=== PATIENT | male | born 1970 | race Caucasian/White ===

== ENCOUNTER 2020-03-18 16:13 | Inpatient (IN) | payer SELFPAY ==
[2020-03-18 16:55] LABS: Basophils % 0.3 % (0-1.3); Hematocrit 41.3 % (39.6-49.0); Lymphocytes % 20.2 % (15.3-44.8); RBC Red Blood Cell Count 4.79 M/uL (4.33-5.43)
[2020-03-18] MEDS ORDERED: ACETAMINOPHEN 500 MG TAB PO PRN (16:55)
[2020-03-18] MEDS ORDERED: MORPHINE 4 MG/ML SYR IV PRN (16:55)
[2020-03-18] MEDS ORDERED: ALPRAZOLAM 0.25 MG TABLET PO PRN (16:55)
[2020-03-18 16:59] LABS: Protime INR 1.03
[2020-03-18 17:15] LABS: ALT/SGPT 109 U/L (12-78); AST/SGOT 81 U/L (15-37); Alkaline Phosphatase 78 U/L (45-117); BUN Blood Urea Nitrogen 9 mg/dL (7-18); Bicarbonate 30 mmol/L (21-32); Bilirubin Direct 0.1 mg/dL (0-0.2); Bilirubin Total 0.5 mg/dL (0.2-1.0); Glucose Level 118 mg/dL (74-106); Magnesium 2.2 mg/dL (1.8-2.4); NT PRO-BNP 27 pg/mL (<125); Potassium 3.5 mmol/L (3.5-5.1); Protein, Total 7.9 g/dL (6.4-8.2); Sodium Level 144 mmol/L (136-145); Troponin (Emerg Dept Use Only) < 0.02 ng/mL (0.0-0.045)
--- NOTE | 2020-03-18 17:36 | RAD REPORT ---
EXAM DESCRIPTION: CT - Head Brain Wo Cont - 03/18/2020 4:55 pm CLINICAL HISTORY: Syncope COMPARISON: None. TECHNIQUE: Computed axial tomography of the head was obtained. IV contrast was not requested. All CT scans are performed using dose optimization technique as appropriate and may include automated exposure control or mA/KV adjustment according to patient size. FINDINGS: An intracranial bleed is not seen . The ventricles are normal in caliber. No extra-axial fluid collection is noted. Bilateral enlargement of the temporalis muscles. Fluid within the sinuses/ mastoids is not seen. IMPRESSION: No acute intracranial abnormality is seen. If patient's symptoms persist MRI of the bra in would be recommended.
--- NOTE | 2020-03-18 17:46 | RAD REPORT ---
EXAM DESCRIPTION: Dora Single View03/18/2020 5:12 pm CLINICAL HISTORY: Chest pain COMPARISON: none FINDINGS: The lungs appear clear of acute infiltrate. The heart is borderline enlarged IMPRESSION: No acute abnormalities displayed
[2020-03-18] MEDS ORDERED: ASPIRIN 81 MG CHEWABLE TABLET ONE (18:00)
[2020-03-18] MEDS ORDERED: ACETAMINOPHEN 500 MG TAB ONE (18:00)
[2020-03-18] MEDS ORDERED: METOPROLOL TAR 50 MG TAB ONE (18:00)
[2020-03-18] MEDS ORDERED: NA CHLORIDE 0.9% 1,000 ML ONE (18:01)
[2020-03-18] MEDS ORDERED: METOPROLOL TARTRATE 5 MG/5 ML INJ IV ONE (18:01)
--- NOTE | 2020-03-18 18:36 | ER ---
Nurse's Notes [facility] – [place], [place] [facility] Name: Remy Briggs Age: 49 yrs Sex: Male : 1970 Arrival Date: 03/18/2020 Time: 16:16 Bed 6 Private MD: Diagnosis: Hypertensive heart disease;Syncope and collapse;Chest pain, unspecified Presentation: 03/18 16:16 Chief complaint: EMS states: [place] when [place] out and went ca1 unresponsive. Upon waking up he c/o SOB and headache. O2 sat at 89%, BP 228/142, BGL 114, temp 98.1F. Given Nitro SL x 1, Solu medrol 125mg IV, A\T\A x 1. Coronavirus screen: Client denies travel out of the [place] in the last 14 days. cough unrelated to allergies, shortness of breath, Client presents with at least one sign or symptom that may indicate coronavirus-19. Standard/surgical mask placed on the client. Provider contacted for isolation considerations. Ebola Screen: Patient negative for fever greater than or equal to 101.5 degrees Fahrenheit, and additional compatible Ebola Virus Disease symptoms Patient denies exposure to infectious person. Patient denies travel to an Ebola-affected area in the 21 days before illness onset. No symptoms or risks identified at this time. Initial Sepsis Screen: Does the patient meet any 2 criteria? No. Patient's initial sepsis screen is negative. Does the patient have a suspected source of infection? No. Patient's initial sepsis screen is negative. Risk Assessment: Do you want to hurt yourself or someone else? Patient reports no desire to harm self or others. Onset of symptoms was March 18, 2020. 16:16 Acuity: LATASHA 2 ca1 16:16 Method Of Arrival: EMS: [facility] ca1 Triage Assessment: 16:20 General: Appears in no apparent distress. uncomfortable, Behavior is cooperative, ca1 anxious. Pain: Denies pain. EENT: No signs and/or symptoms were reported regarding the EENT system. Neuro: Level of Consciousness is awake, alert, obeys commands, Oriented to person, place, time, situation, Radiological Metallurgist are equal bilaterally Moves all extremities. Speech is normal, Facial symmetry appears normal, Pupils are PERRLA, Intact Reports headache a syncopal episode. Cardiovascular: Heart tones S1 S2 present Capillary refill < 3 seconds Patient's skin is warm and dry. Rhythm is sinus tachycardia. Respiratory: Reports shortness of breath Airway is patent Respiratory effort is even, unlabored, Respiratory pattern is regular, symmetrical, Breath sounds are clear bilaterally. GI: Abdomen is round non-distended, Bowel sounds present X 4 quads. Abd is soft and non tender X 4 quads. : No signs and/or symptoms were reported regarding the genitourinary system. Derm: Skin is intact, is healthy with good turgor, Skin is pink, warm \T\ dry. Musculoskeletal: Circulation, motion, and sensation intact. Capillary refill < 3 seconds. Historical: - Allergies: 16:20 No Known Allergies; ca1 - Home Meds: 16:20 lisinopril Oral [Active]; ca1 - PMHx: 16:20 Hypertension; ca1 - PSHx: 16:20 None; ca1 - Immunization history:: Flu vaccine is not up to date. - Social history:: Smoking status: Patient denies any tobacco usage or history of. Screenin:24 Abuse screen: Denies threats or abuse. Denies injuries from another. Nutritional ca1 screening: No deficits noted. Tuberculosis screening: No symptoms or risk factors identified. Fall Risk IV access (20 points). Assessment: 16:22 Reassessment: see triage notes. ca1 17:30 Reassessment: Patient appears in no apparent distress at this time. Patient and/or ca1 family updated on plan of care and expected duration. Pain level reassessed. Patient is alert, oriented x 3, equal unlabored respirations, skin warm/dry/pink. 18:32 Reassessment: Patient appears in no apparent distress at this time. Patient and/or ca1 family updated on plan of care and expected duration. Pain level reassessed. Patient is alert, oriented x 3, equal unlabored respirations, skin warm/dry/pink. Vital Signs: 16:16 BP 189 / 122; Pulse 106; Resp 20; Temp 97.4(TE); Pulse Ox 97% on R/A; Weight 99.79 kg ca1 (R); Height 5 ft. 8 in. (172.72 cm) (R); Pain 0/10; 17:35 BP 186 / 139 LA; Pulse 84; Resp 22; Pulse Ox 95% on R/A; ca1 17:40 BP 204 / 150 RA; Pulse 72; Resp 22 S; Pulse Ox 94% on R/A; ca1 18:40 BP 181 / 111; Pulse 69; Resp 16; Pulse Ox 92% on R/A; ca1 16:16 Body Mass Index 33.45 (99.79 kg, 172.72 cm) ca1 ED Course: 16:16 Patient arrived in ED. iw 16:16 Ellen Perla, RN is Primary Nurse. ca1 16:16 Attila Cifuentes PA is PHCP. cp 16:16 Archana Rodriguez MD is Attending Physician. cp 16:19 Triage completed. ca1 16:20 Arm band placed on right wrist. ca1 16:24 Patient has correct armband on for positive identification. Bed in low position. Call ca1 light in reach. Side rails up X2. radiation monitor on. Pulse ox on. NIBP on. Warm blanket given. 16:24 No provider procedures requiring assistance completed. Maintain EMS IV. Dressing ca1 intact. Good blood return noted. Site clean \T\ dry. Gauge \T\ site: 20 G RAC. 16:37 Ptt, Activated Sent. mh5 16:37 Basic Metabolic Panel Sent. mh5 16:37 CBC with Automated Diff Sent. mh5 16:38 EKG done, by ED staff, reviewed by Archana Rodriguez MD. mh5 16:55 CT Head Brain wo Cont In Process Unspecified. EDMS 18:35 Archana Cervantes MD is Hospitalizing Provider. cp 19:01 Inserted saline lock: 20 gauge in right forearm, using aseptic technique. jb5 19:47 Inserted saline lock: 20 gauge in right forearm, using aseptic technique. jb5 Administered Medications: 17:40 Drug: NS 0.9% 1000 ml Route: IV; Rate: 1 bolus; Site: right antecubital; ca1 17:42 Drug: Tylenol 1000 mg Route: PO; ca1 17:50 Drug: Aspirin Chewable Tablet 324 mg Route: PO; ca1 17:52 Drug: Lopressor 50 mg Route: PO; ca1 17:55 Drug: Lopressor 5 mg Route: IVP; Site: right antecubital; ca1 18:44 Not Given (Hemodynamic Parameters): Nitroglycerin 0.4 mg Sublingual once; every five ca1 minute if needed x3 19:30 Drug: Lisinopril 20 mg Route: PO; ca1 19:43 Drug: hydrALAZINE 10 mg Route: IV; Rate: calculated rate; Site: right forearm; ca1 20:07 CANCELLED (Physician Discretion): hydrALAZINE 10 mg IV at calculated rate once cp Outcome: 18:36 Decision to Hospitalize by Provider. cp 03/19 14:53 Patient left the ED. jd3 Signatures: Dispatcher [employer] EDChasity Lau RN RN Attila Yuen PA PA cp Martinez, Maria mh5 Broussard, Jennifer jb5 Davies, Jonathon, RN RN jd3 Ellen Perla RN RN ca1 Corrections: (The following items were deleted from the chart) 03/18 19:00 18:32 Reassessment: Patient appears in no apparent distress at this time. ca1 ca1 19:48 19:01 Inserted saline lock: 20 gauge in right forearm, using aseptic technique. jb5 jb5 19:48 19:47 Inserted saline lock: 20 gauge in right forearm, using aseptic technique. jb5 jb5
--- NOTE | 2020-03-18 18:36 | EDPHYS ---
Physician Documentation [facility] Name: Remy Briggs Age: 49 yrs Sex: Male : 1970 Arrival Date: 03/18/2020 Time: 16:16 Bed 6 Private MD: ED Physician Archana Rodriguez HPI: 03/18 17:00 This 49 yrs old Male presents to ER via EMS with complaints of Syncope and cp Chest Pain. 17:00 The patient has experienced syncope, lost consciousness. cp 17:00 Onset: The symptoms/episode began/occurred just prior to arrival. cp 17:00 Duration: This was a single episode, that lasted an unknown period of time. cp 17:00 Context: occurred at work, occurred while the patient was driving. Just prior to the cp episode the patient experienced no apparent symptoms. 17:00 Associated injury: The patient did not suffer any apparent associated injury. cp Associated signs and symptoms: Pertinent positives: chest pain, headache, Pertinent negatives: abdominal pain, vomiting, weakness. Current symptoms: headache. Historical: - Allergies: 16:20 No Known Allergies; ca1 - Home Meds: 16:20 lisinopril Oral [Active]; ca1 - PMHx: 16:20 Hypertension; ca1 - PSHx: 16:20 None; ca1 - Immunization history:: Flu vaccine is not up to date. - Social history:: Smoking status: Patient denies any tobacco usage or history of. ROS: 17:00 Cardiovascular: Positive for chest pain. cp 17:00 Eyes: Negative for injury, pain, redness, and discharge. cp 17:00 Constitutional: Negative for body aches, chills, fever, poor PO intake. 17:00 Respiratory: Positive for shortness of breath, at rest. Negative for cough, wheezing. 17:00 Abdomen/GI: Negative for abdominal pain, nausea, vomiting, and diarrhea, constipation, black/tarry stool, rectal bleeding. 17:00 Back: Negative for radiated pain. 17:00 Neuro: Positive for headache, syncope, Negative for altered mental status, weakness. 17:00 All other systems are negative. Exam: 17:00 ECG was reviewed by the Attending Physician. cp 17:05 Constitutional: The patient appears in no acute distress, alert, awake, cp non-diaphoretic, non-toxic, well developed, well nourished, obese. 17:05 Head/Face: Normocephalic, atraumatic. cp 17:05 Eyes: Periorbital structures: appear normal, Conjunctiva: normal, no exudate, no injection, Sclera: no appreciated abnormality, Lids and lashes: appear normal, bilaterally. 17:05 ENT: External ear(s): are unremarkable, Nose: is normal, Mouth: Lips: moist, Oral mucosa: moist, Posterior pharynx: Airway: no evidence of obstruction, patent. 17:05 Neck: ROM/movement: is normal, is supple, without pain, no range of motions limitations. 17:05 Chest/axilla: Inspection: normal, Palpation: is normal, no crepitus, no tenderness. 17:05 Cardiovascular: Rate: tachycardic, Rhythm: regular, Edema: mild bilateral lower legs, JVD: is not appreciated. 17:05 Respiratory: the patient does not display signs of respiratory distress, Respirations: labored breathing, that is mild, intercostal retractions, are absent, Breath sounds: are clear throughout, no decreased breath sounds, no stridor, no wheezing. 17:05 Abdomen/GI: Inspection: abdomen appears normal, Palpation: abdomen is soft and non-tender, in all quadrants. 17:05 Back: pain, is absent, ROM is normal. 17:05 Neuro: Orientation: to person, place \T\ time. Mentation: able to follow commands, slow to respond, Motor: moves all fours, general weakness without focal deficits, Sensation: no obvious gross deficits. Vital Signs: 16:16 BP 189 / 122; Pulse 106; Resp 20; Temp 97.4(TE); Pulse Ox 97% on R/A; Weight 99.79 kg ca1 (R); Height 5 ft. 8 in. (172.72 cm) (R); Pain 0/10; 17:35 BP 186 / 139 LA; Pulse 84; Resp 22; Pulse Ox 95% on R/A; ca1 17:40 BP 204 / 150 RA; Pulse 72; Resp 22 S; Pulse Ox 94% on R/A; ca1 18:40 BP 181 / 111; Pulse 69; Resp 16; Pulse Ox 92% on R/A; ca1 16:16 Body Mass Index 33.45 (99.79 kg, 172.72 cm) ca1 MDM: 16:20 Patient medically screened. 17:15 Differential Diagnosis: cardiac arrhythmia, cerebrovascular accident, drug effect, GI cp bleed, idiopathic syncope, seizure, vasovagal episode. 18:35 Counseling: I had a detailed discussion with the patient and/or guardian regarding: the cp historical points, exam findings, and any diagnostic results supporting the discharge/admit diagnosis, lab results, radiology results, the need for further work-up and treatment in the hospital. Response to treatment: the patient's symptoms have mildly improved after treatment. Physician consultation: Archana Cervantes MD. 18:35 Data reviewed: vital signs, nurses notes, lab test result(s), EKG, radiologic studies, cp CT scan, plain films, and as a result, I will admit patient. 03/18 16:20 Order name: Basic Metabolic Panel 03/18 16:20 Order name: CBC with Diff 03/18 16:20 Order name: LFT's; Complete Time: 17:22 03/18 17:22 Interpretation: Normal except: AST 81; ALT 109; GLOB 3.9; A/G 1.0. 03/18 16:20 Order name: Magnesium; Complete Time: 17:22 03/18 16:20 Order name: NT PRO-BNP; Complete Time: 17:22 03/18 16:20 Order name: PT-INR; Complete Time: 17:22 03/18 16:20 Order name: Troponin (emerg Dept Use Only); Complete Time: 17:22 03/18 17:24 Interpretation: Within normal limits: TROPED < 0.02; Reviewed. 03/18 16:20 Order name: Ptt, Activated; Complete Time: 17:22 03/18 16:20 Order name: Basic Metabolic Panel; Complete Time: 17:22 EDID 03/18 17:23 Interpretation: Normal except: CL 110; GLUC 118; GFR 60; CA 7.9. 03/18 16:20 Order name: CBC with Automated Diff; Complete Time: 17:22 EDID 03/18 16:55 Order name: Influenza Screen (a \T\ B) 03/18 16:57 Order name: Influenza Screen (A EDID 03/18 17:02 Order name: Basic Metabolic Panel [facility] 03/18 17:02 Order name: Basic Metabolic Panel [facility] 03/18 17:02 Order name: Lipid Profile EDID 03/18 17:02 Order name: Lipid Profile [facility] 03/18 17:02 Order name: PTT, Activated Partial Thromb EDID 03/18 17:02 Order name: PTT, Activated Partial Thromb EDID 03/18 17:02 Order name: Troponin I EDID 03/18 17:02 Order name: Troponin I EDID 03/18 17:02 Order name: Troponin I [facility] 03/18 17:03 Order name: CBC with Automated Diff EDID 03/18 17:03 Order name: CBC with Automated Diff [facility] 03/18 17:27 Order name: LAB Add On cp 03/18 17:49 Order name: D-Dimer; Complete Time: 18:34 [facility] 03/18 19:04 Order name: Urine Dipstick--Ancillary (enter results) tt3 03/18 19:14 Order name: Urine Dipstick-Ancillary; Complete Time: 19:24 [facility] 03/18 19:21 Order name: COVID-19/FLU A+B; Complete Time: 19:24 [facility] 03/19 05:47 Order name: Lipid Profile [facility] 03/18 16:20 Order name: XRAY Chest (1 view) 03/18 16:20 Order name: EKG; Complete Time: 16:21 cp 03/18 16:20 Order name: Cardiac monitoring; Complete Time: 16:36 cp 03/18 16:20 Order name: EKG - Nurse/Tech; Complete Time: 16:37 cp 03/18 16:20 Order name: IV Saline Lock; Complete Time: 16:37 cp 03/18 16:20 Order name: Labs collected and sent; Complete Time: 18:44 cp 03/18 16:20 Order name: O2 Per Protocol; Complete Time: 18:44 cp 03/18 16:20 Order name: O2 Sat Monitoring; Complete Time: 18:44 cp 03/18 16:20 Order name: CT Head Brain wo Cont; Complete Time: 18:34 cp 03/18 16:20 Order name: Urine Dipstick-Ancillary (obtain specimen); Complete Time: 18:57 cp 03/18 16:55 Order name: Blood Pressure Recheck: bilateral upper extremity; Complete Time: 18:44 cp 03/18 17:03 Order name: Heart Healthy EDID 03/18 17:03 Order name: Echo with Doppler EDID 03/18 17:03 Order name: Carotid Artery Bilateral EDMS 03/18 17:03 Order name: Carotid Artery Bilateral EDMS 03/18 17:08 Order name: US Extremity Venous W Compression Volodymyr cp 03/18 17:47 Order name: RAD; Complete Time: 18:34 EDMS 03/18 19:06 Order name: US; Complete Time: 19:24 EDMS 03/19 06:52 Order name: Manual Differential EDMS 03/19 07:55 Order name: Glucose, Ancillary Testing EDMS 03/19 14:11 Order name: CT EDMS 03/19 14:37 Order name: Glucose, Ancillary Testing EDMS EC:00 Rate is 93 beats/min. Rhythm is regular. NC interval is normal. QRS interval is normal. cp QT interval is normal. T waves are Inverted in leads III, aVR. Reviewed by me. Administered Medications: 17:40 Drug: NS 0.9% 1000 ml Route: IV; Rate: 1 bolus; Site: right antecubital; ca1 17:42 Drug: Tylenol 1000 mg Route: PO; ca1 17:50 Drug: Aspirin Chewable Tablet 324 mg Route: PO; ca1 17:52 Drug: Lopressor 50 mg Route: PO; ca1 17:55 Drug: Lopressor 5 mg Route: IVP; Site: right antecubital; ca1 18:44 Not Given (Hemodynamic Parameters): Nitroglycerin 0.4 mg Sublingual once; every five ca1 minute if needed x3 19:30 Drug: Lisinopril 20 mg Route: PO; ca1 19:43 Drug: hydrALAZINE 10 mg Route: IV; Rate: calculated rate; Site: right forearm; ca1 20:07 CANCELLED (Physician Discretion): hydrALAZINE 10 mg IV at calculated rate once cp Disposition: 03/18/20 18:36 Hospitalization ordered by Archana Cervantes for Observation. Preliminary diagnosis are Hypertensive heart disease, Syncope and collapse, Chest pain, unspecified. - Bed requested for Telemetry/MedSurg (observation). - Status is Observation. jd3 - Condition is Stable. - Problem is new. - Symptoms have improved. Addendum: 03/21/2020 07:08 Co-signature as Attending Physician, Archana mcdonald a2 Signatures: Dispatcher [employer] Liea Leone RN RN dw Gladys Angel RN RN tl1 Attila Cifuentes PA PA cp Tereso Lubin, RN RN jd3 Archana Rodriguez MD MD ma2 Ellen Perla RN RN ca1 Corrections: (The following items were deleted from the chart) 03/18 17:23 17:23 Normal except: CL 110; GLUC 118; GFR 60. cp cp 17:35 17:34 ECG was reviewed by the Attending Physician. cp cp 18:36 18:36 Hospitalization Ordered by Archana Cervantes MD for Observation. Preliminary cp diagnosis is Hypertensive heart disease; Syncope and collapse. Bed requested for Telemetry/MedSurg (observation). Status is Observation. Condition is Stable. Problem is new. Symptoms have improved. cp 20:07 19:59 hydrALAZINE 10 mg IV at calculated rate once ordered. cp cp 20:39 18:36 03/18/2020 18:36 Hospitalization Ordered by Archana Cervantes MD for Observation. tl1 Preliminary diagnosis is Hypertensive heart disease; Syncope and collapse; Chest pain, unspecified. Bed requested for Telemetry/MedSurg (observation). Status is Observation. Condition is Stable. Problem is new. Symptoms have improved. cp 03/19 13:33 03/18 20:39 03/18/2020 18:36 Hospitalization Ordered by Archana Cervantes MD for dw Observation. Preliminary diagnosis is Hypertensive heart disease; Syncope and collapse; Chest pain, unspecified. Bed requested for [facility] ER HOLD. Status is Observation. Condition is Stable. Problem is new. Symptoms have improved. tl1 03/19 14:53 13:33 03/18/2020 18:36 Hospitalization Ordered by Archana Cervantes MD for Observation. jd3 Preliminary diagnosis is Hypertensive heart disease; Syncope and collapse; Chest pain, unspecified. Bed requested for Telemetry/MedSurg (observation). Status is Observation. Condition is Stable. Problem is new. Symptoms have improved. dw 03/20 10:50 03/18 17:00 Context: occurred at home, occurred while the patient was standing, Just cp prior to the episode the patient experienced lightheadedness, cp 03/20 10:50 03/18 17:00 Associated injury: Left lower extremity: left lateral ankle, swelling, cp tenderness, cp 03/20 10:50 03/18 17:00 Current symptoms: Currently, the patient is not experiencing any symptoms, cp cp
--- NOTE | 2020-03-18 19:05 | RAD REPORT ---
EXAM DESCRIPTION: USExtrem Venous W Compress Bil03/18/2020 6:37 pm CLINICAL HISTORY: Leg swelling COMPARISON: none FINDINGS: The common femoral, superficial femoral, popliteal and posterior tibial veins bilaterally are compressible and demonstrate augmentation. Doppler demonstrates good flow. IMPRESSION: No evidence of deep venous thrombosis involving either lower extremity.
[2020-03-18 19:14] LABS: Urine Blood NEGATIVE (NEG); Urine Glucose NEGATIVE (NEG); Urine Protein 2+ (NEG); Urine Specific Gravity 1.025 (1.005-1.030)
[2020-03-18 19:20] LABS: SARS-COV-2 RT PCR NEGATIVE (NEGATIVE)
[2020-03-18] MEDS ORDERED: HYDRALAZINE HCL 20 MG/ML VIAL ONE (19:55)
[2020-03-18] MEDS ORDERED: lisinopriL 20 MG TAB ONE (19:55)
[2020-03-18] MEDS ORDERED: ENOXAPARIN 100 MG/ML SYR SQ ONE ×2 (21:00→22:15)
[2020-03-18] MEDS: METOPROLOL TAR 50 MG TAB PO SCH (21:00)
[2020-03-19 05:29] LABS: Absolute Lymphocytes (CBC) 0.7 K/uL (0.7-4.9); Basophils % 0.4 % (0-1.3); Hematocrit 44.1 % (39.6-49.0); Lymphocytes % 6.8 % (15.3-44.8); MPV 10.8 fL (7.6-11.3); RBC Red Blood Cell Count 5.05 M/uL (4.33-5.43)
[2020-03-19 05:47] LABS: BUN Blood Urea Nitrogen 11 mg/dL (7-18); Bicarbonate 28 mmol/L (21-32); Glucose Level 154 mg/dL (74-106); HDL Cholesterol 44 mg/dL (40-60); LDL Cholesterol, Calculated 165 (<130); Potassium 3.8 mmol/L (3.5-5.1); Sodium Level 141 mmol/L (136-145); Troponin I < 0.02 ng/mL (0.0-0.045)
[2020-03-19 06:34] VITALS: BMI 34.4
[2020-03-19 06:51] LABS: Blood Morphology Comment NOT SEEN (NOT SEEN); Platelet Estimate DECR
--- NOTE | 2020-03-19 07:25 | RAD REPORT ---
EXAM DESCRIPTION: USCarotid Artery Bilateral03/19/2020 7:05 am CLINICAL HISTORY: syncope COMPARISON: None FINDINGS: The velocity of the right internal carotid artery equals 74 cm/sec. The right ICA/CCA rati o 1. 2 The velocity of the left internal carotid artery equals 88 cm/sec. The left ICA/CCA ratio 1.2 Plaque within the carotid arteries is not visualized. Carotid arteries tortuous The vertebral arteries demonstrate antegrade flow IMPRESSION: Tortuous carotid arteries. Otherwise unremarkable exam NASCET criteria used. Mild 0-49% stenosis Moderate 50-69% stenosis Severe 70-99% stenosis
[2020-03-19] MEDS ORDERED: INFLUENZA VACCINE (for 3y+) 0.5 ML DOSE IMVAC ONE (08:00)
[2020-03-19] MEDS ORDERED: ASPIRIN EC 81 MG TAB PO SCH (09:00)
[2020-03-19] MEDS ORDERED: ENOXAPARIN 40 MG/0.4 ML SQ SCH (09:00)
[2020-03-19] MEDS ORDERED: ENOXAPARIN 100 MG/ML SYR SQ SCH (09:00)
[2020-03-19] MEDS: METOPROLOL TAR 50 MG TAB PO SCH (09:00)
[2020-03-19] MEDS ORDERED: ASPIRIN EC 81 MG TAB PO ONE (09:47)
[2020-03-19] MEDS ORDERED: METOPROLOL TAR 25 MG TAB ONE (09:47)
--- NOTE | 2020-03-19 14:10 | RAD REPORT ---
EXAM DESCRIPTION: CTHead angio03/19/2020 11:41 am CLINICAL HISTORY: Syncope/family history of aneurysm COMPARISON: None TECHNIQUE: CT angiogram of the head was obtained. 3D MIPS reconstruction performed. All CT scans are performed using dose optimization technique as appropriate and may include automated exposure control or mA/KV adjustment according to patient size. FINDINGS: The basilar, internal carotid, anterior cerebral, middle cerebral and posterior cerebral a rteries are normal caliber. An aneurysm is not seen. Right vertebral artery terminates into the pica A significant stenosis is not noted. IMPRESSION: No acute abnormality displayed
[2020-03-19 15:01] VITALS: O2SAT 92
[2020-03-19] MEDS ORDERED: cloNIDine HCL 0.1 MG TAB PO ONE (15:11)
[2020-03-19 17:17] VITALS: TEMP 98.8
[2020-03-19 17:44] VITALS: BP 154/89
--- NOTE | 2020-03-20 07:51 | EKG ---
Test Date: 2020-03-18 Test Time: 16:30:14 Accounting Intern: ARNULFO MEASUREMENT RESULTS: Intervals: Rate: 93 SC: 160 QRSD: 84 QT: 370 QTc: 460 [place]: P: 25 SC: 160 QRS: -26 T: 11 INTERPRETIVE STATEMENTS: Normal sinus rhythm with sinus arrhythmia Normal ECG No previous ECG available for comparison Electronically Signed On 03-20-20 07:49:25 TRANSIT SURVEY WORKER by Adriano Akhtar
--- NOTE | 2020-03-25 00:55 | P.HP ---
Certification for Inpatient Patient admitted to: Inpatient With expected LOS: >2 Midnights Patient will require the following post-hospital care: None Practitioner: I am a practitioner with admitting privileges, knowledge of patient current condition, hospital course, and medical plan of care. Services: Services provided to patient in accordance with Admission requirements found in Title 42 Section 412.3 of the Code of Federal Regulations Patient History Date of Service: 03/18/20 Reason for admission: Syncope and collapse History of Present Illness: Patient is a 49-year-old gentleman who came into the hospital after having a syncopal event [place] Patient had multiple episodes of passing out. Patient came with to the hospital for further evaluation. CT of the brain was negative. Patient will be admitted for further evaluation. Allergies No Known Allergies Allergy (Unverified 03/18/20 18:11) Home Medications: RX: Hydralazine [Apresoline*] 10 mg PO BID #60 tab 03/19/20 RX: Lisinopril [Zestril] 1 tab PO BID #60 03/19/20 - Past Medical/Surgical History Has patient received pneumonia vaccine in the past: No Diabetic: No Past Medical History: Patient denies medical history Past Surgical History: Patient denies surgical history - Family History Father Family History: Reviewed- Non-Contributory - Social History Smoking Status: Never smoker Alcohol use: Yes CD- Drugs: No Caffeine use: No Place of Residence: Home Review of Systems 10-point ROS is otherwise unremarkable Physical Examination - Vital Signs Temperature: 98.8 F Blood Pressure: 154/89 Pulse: 81 Respirations: 20 Pulse Ox (%): 93 - Physical Exam General: Alert, In no apparent distress, Oriented x3 HEENT: Atraumatic, PERRLA, Mucous membr. moist/pink, EOMI, Sclerae nonicteric Neck: Supple, 2+ carotid pulse no bruit, No LAD, Without JVD or thyroid abnormality Respiratory: Clear to auscultation bilaterally, Normal air movement Cardiovascular: Regular rate/rhythm, Normal S1 S2, No murmurs Gastrointestinal: Normal bowel sounds, Soft and benign, Non-distended, No tenderness Musculoskeletal: No clubbing, No swelling, No tenderness Integumentary: No rashes Neurological: Normal gait, Normal speech, Normal strength at 5/5 x4 extr, Normal tone, Sensation intact, Cranial nerves 3-12 intact, Normal affect Lymphatics: No axilla or inguinal lymphadenopathy Assessment & Plan - Problems (Diagnosis) (1) Syncope and collapse Status: Acute - Plan Plan: 1. Carotid Doppler 2. Telemetry monitoring 3. Echocardiogram 4. May need to do a stress test 5. Antiplatelet therapy and statin therapy 6. GI and DVT prophylaxis Discharge Plan: Home Plan to discharge in: 24 Hours - Advance Directives Does patient have a Living Will: No Does patient have a Durable POA for Healthcare: No - Code Status/Comfort Care Code Status Assessed: Yes Code Status: Full Code Critical Care: No Time Spent Managing PTS Care (In Minutes): 45
--- NOTE | 2020-03-25 00:56 | P.DS ---
Discharge Date: 03/19/20 Disposition: ROUTINE DISCHARGE Discharge Condition: GOOD Reason for Admission: Syncope and collapse - Problems (1) Syncope and collapse Status: Acute Brief History of Present Illness: Patient is a 49-year-old gentleman who came into the hospital after having a syncopal event [place] Patient had multiple episodes of passing out. Patient came with to the hospital for further evaluation. CT of the brain was negative. Patient will be admitted for further evaluation. Hospital Course: Patient has done well during hospital stay. Patient is doing much better. This time, patient is stable for discharge home. Vital Signs/Physical Exam: Temp Pulse Resp BP Pulse Ox 98.8 F 81 20 154/89 H 93 03/25/20 00:54 03/25/20 00:54 03/25/20 00:54 03/25/20 00:54 03/25/20 00:54 General: Alert, In no apparent distress, Oriented x3 Laboratory Data at Discharge: WBC 9.50 K/uL (4.3-10.9) D 03/19/20 05:10 Hgb 14.2 g/dL (13.6-17.9) 03/19/20 05:10 Hct 44.1 % (39.6-49.0) 03/19/20 05:10 Plt Count 125 K/uL (152-406) L 03/19/20 05:10 PT 12.2 SECONDS (9.5-12.5) 03/18/20 16:45 INR 1.03 03/18/20 16:45 APTT 30.9 SECONDS (24.3-36.9) 03/19/20 05:10 Sodium 141 mmol/L (136-145) 03/19/20 05:10 Potassium 3.8 mmol/L (3.5-5.1) 03/19/20 05:10 BUN 11 mg/dL (7-18) 03/19/20 05:10 Creatinine 1.26 mg/dL (0.55-1.3) 03/19/20 05:10 Glucose 154 mg/dL (74-106) H 03/19/20 05:10 Magnesium 2.2 mg/dL (1.8-2.4) 03/18/20 16:45 Total Bilirubin 0.5 mg/dL (0.2-1.0) 03/18/20 16:45 AST 81 U/L (15-37) H 03/18/20 16:45 ALT 109 U/L (12-78) H 03/18/20 16:45 Alkaline Phosphatase 78 U/L (45-117) 03/18/20 16:45 Troponin I < 0.02 ng/mL (0.0-0.045) 03/19/20 05:10 Triglycerides Cancelled 03/19/20 06:00 Cholesterol Cancelled 03/19/20 06:00 HDL Cholesterol Cancelled 03/19/20 06:00 Cholesterol/HDL Ratio Cancelled 03/19/20 06:00 Home Medications: RX: Hydralazine [Apresoline*] 10 mg PO BID #60 tab 03/19/20 RX: Lisinopril [Zestril] 1 tab PO BID #60 03/19/20 New Medications: RX: Hydralazine [Apresoline*] 10 mg PO BID #60 tab RX: Lisinopril [Zestril] 1 tab PO BID #60 Physician Discharge Instructions: -OK TO DC IV AND DC HOME -FOLLOW-UP WITH PCP IN 1-2 WEEKS -FOLLOW-UP WITH CARDIOLOGY IN 1-2 WEEKS -PLEASE MAKE SURE ALL DIAGNOSTIC STUDIES ARE AVAILABLE AND HAVE BEEN REVIEWED WITH PATIENT PRIOR TO DISCHARGE -RETURN TO THE ER IF symptoms worsen -CALL DR. BROWN AT [phone] IF ANY QUESTIONS REGARDING HOSPITAL STAY -PLEASE CALL THE FLOOR AT [phone] IF ANY MEDICATION OR NURSING QUESTIONS Diet: AHA Activity: Fall precautions Followup: Unknown,U [Primary Care Provider] - Time spent managing pt's care (in minutes): 35
== END 2020-03-19 18:01 | disposition home or self-care (01) | DRG 312 ==
LOC: ER 16:13 → ERHOLD 17:04 → OBSVTOIN 03-19 07:40 → 2ND 03-19 14:43
PROVIDERS: ADMIT Hospitalist; ATTEND Hospitalist
DX: R55 Syncope and collapse (principal); I11.9 Hypertensive heart disease without heart failure; R07.9 Chest pain, unspecified; Z79.899 Other long term (current) drug therapy; Z20.822 Contact with and (suspected) exposure to COVID-19
CPT/HCPCS: 0240U; 36415; 70450; 70496; 71045; 80048; 80061; 80076; 81003; 82947; 83735; 83880; 84484; 85025; 85379; 85610; 85730; 93005; 93880; 93970; 99285; G0378; J0360; J1650; J7030; Q9967